=== PATIENT | male | born 1935 | race Caucasian/White ===

== ENCOUNTER → 2018-01-07 | Outpatient (CLI) | payer MEDICARE, BC ==
--- NOTE | 2018-01-07 10:34 | Diagnostic Imaging Report ---
PROCEDURE:CHEST 2 VIEWS TECHNIQUE:PA and lateral chest INDICATION:Hypertension with heart failure. COMPARISON:None. FINDINGS: Lungs are clear and symmetrically inflated. No pleural effusions. Normal heart size. Tortuous thoracic aorta with mild arch calcification. 2-lead pacemaker over left hemithorax; leads intact. Intact skeleton. Abdominal aortic endograft is noted. CONCLUSION: No acute abnormality. Specifically, no evidence of pulmonary edema. Dictated by: Brendon Roman M.D. on 01/07/2018 at 10:33 Electronically approved by: Brendon Roman M.D. on 01/07/2018 at 10:33
== END ==
LOC: RAD 09:15
PROVIDERS: ATTEND Internal Medicine Cardiovascular Disease
DX: I11.0 Hypertensive heart disease with heart failure (principal)
CPT/HCPCS: 71046

== ENCOUNTER → 2018-03-25 | Outpatient (RCR) | payer MEDICARE, BC | LOC: PT 03-10 13:46 | PROVIDERS: ATTEND Specialist | DX: S32.010A Wedge compression fracture of first lumbar vertebra, initial encounter for closed fracture (principal); M54.5 Low back pain; M62.81 Muscle weakness (generalized) | CPT/HCPCS: 97110 ×6; 97162; G8978; G8979 ==

== ENCOUNTER 2018-04-05 13:59 | Outpatient (RCR) | payer MEDICARE, BC | END 2018-04-24 | LOC: PT 13:59 | PROVIDERS: ATTEND Specialist | DX: S32.010A Wedge compression fracture of first lumbar vertebra, initial encounter for closed fracture (principal); M54.5 Low back pain; M62.81 Muscle weakness (generalized) | CPT/HCPCS: 97110 ×5; G8978; G8979 ×2; G8980 ==